=== PATIENT | male | born 1980 | race Two or more races ===

== ENCOUNTER 2025-01-05 13:32 | Emergency (ER) | payer OTHER ==
[~2025-01-05] VITALS: Ht 172.7 cm; Wt 84.5 kg
--- NOTE | 2025-01-05 13:54 | ED.PDOC ---
History of Present Illness HPI Comments This is a 44-year-old male with past medical history of panic disorder presented to the ED with a chief complaint of palpitation, shortness of breath and nausea 1-1/2 hr before presenting to the ER. The patient stated that he did not eat his breakfast today does drink 1 cup of coffee and half cup of water working in the sun moving 4 L and suddenly he felt lightheadedness, nauseous, palpitation, heaviness in the chest and felt like he is going to . He also mentioned that he is following with early childhood for PVC. He denies fever, chills, chest pain, , diaphoresis abdominal pain, dysuria, hematuria or any changes in bowel habit. Chief Complaint: Syncope Time Seen by MD: 13:38 Allergies: Coded Allergies: NO KNOWN ALLERGIES (Unverified , 01/05/25) Information Source: Patient Mode of Arrival: Ambulatory Severity: Moderate Timing: Hours Duration: Since onset Prehospital treatment: None Past Medical History Past Medical History (Other): Panic disorder Surgical History: Denies all surgeries Family History Family History: Reviewed,noncontributory to illness Social History Smoker: Non-Smoker Alcohol: Denies ETOH Use Drugs: Denies Drug Use Lives In: Home Constitutional: denies: chills, diaphoresis, fatigue, fever, malaise, sweats, weakness, others EENTM: denies: blurred vision, double vision, ear bleeding, ear discharge, ear drainage, ear pain, ear ringing, eye pain, eye redness, hearing loss, mouth pain, mouth swelling, nasal discharge, nose bleeding, nose congestion, nose pain, photophobia, tearing, throat pain, throat swelling, voice changes, others Respiratory: reports: shortness of breath; denies: cough, hemoptysis, orthopnea, SOB at rest, SOB with excertion, stridor, wheezing, others Cardiovascular: reports: lightheadedness; denies: chest pain, dizzy spells, diaphoresis, Dyspnea on exertion, edema, irregular heart beat, left arm pain, palpitations, PND, syncope, others Gastrointestinal: reports: nausea; denies: abdomen distended, abdominal pain, blood streaked bowels, constipated, diarrhea, dysphagia, difficulty swallowing, hematemesis, melena, poor appetite, poor fluid intake, rectal bleeding, rectal pain, vomiting, others Genitourinary: denies: burning, dysuria, flank pain, frequency, hematuria, incontinence, penile discharge, penile sore, pain, testicle pain, testicle swelling, urgency, others Neurological: reports: dizziness; denies: fainting, headache, left sided numbness, left sided weakness, numbness, paresthesia, pre-existing deficit, right sided numbness, right sided weakness, seizure, speech problems, tingling, tremors, weakness, others Musculoskeletal: denies: back pain, gout, joint pain, joint swelling, muscle pain, muscle stiffness, neck pain, others Integumetry: denies: bruises, change in color, change in hair/nails, dryness, laceration, lesions, lumps, rash, wounds, others Allergic/Immunocompromised: denies: Difficulty Healing, Frequent Infections, Hives, Itching, others Hematologic/Lymphatic: denies: anemia, blood clots, easy bleeding, easy bruising, swollen glands, others Endocrine: denies: excessive hunger, excessive sweating, excessive thirst, excessive urination, flushing, intolerance to cold, intolerance to heat, unexplained weight gain, unexplained weight loss, others Psychiatric: denies: anxiety, bipolar disorder, depression, hopeless, panic disorder, schizophrenia, sleepless, suicidal, others Physical Exam General Appearance: Normal HEENT: Normal ENT Inspection, Pharynx Normal, TMs Normal Neck: Full Range of Motion, Non-Tender, Normal, Normal Inspection Respiratory: Chest Non-Tender, Lungs Clear, No Accessory Muscle Use, No Respiratory Distress, Normal Breath Sounds Cardiovascular: No Edema, No JVD, No Murmur, No Gallop, Normal Peripheral Pulses, Regular Rate/Rhythm Breast Exam: Deferred Gastrointestinal: No Organomegaly, Non Tender, No Pulsatile Mass, Normal Bowel Sounds Genitalia: Deferred Pelvic: Deferred Rectal: Deferred Extremities: No calf tenderness, Normal capillary refill, Normal inspection, Normal range of motion, Non-tender, No pedal edema Neurologic: Alert, adjusto writer operator II-XII nml as Tested, No Motor Deficits, Normal Affect, Normal Mood, No Sensory Deficits Cerebellar Function: NOT DONE Reflexes: NOT DONE Skin: NOT DONE Peripheral Pulses: 2+ carotid (R), 2+ carotid (L), 2+ femoral (R), 2+ femoral (L), 2+ dorsalis pedis (R), 2+ dorsalis pedis (L), 2+ Radial (R), 2+ Radial (L), 2+ Brachial (R), 2+ Brachial (L) Lymphatic: NOT DONE Was a procedure done? Was a procedure done?: No EKG EKG : Pulse Rate (adult): 101 Comments Sinus tachycardia Differential Dx Considerations may include: Vasovagal syncope, panic attack, dehydration, gastroenteritis X-Ray, Labs, Meds, VS Vital Signs Date Time Temp Pulse Resp B/P (MAP) Pulse Ox O2 Delivery O2 Flow Rate FiO2 01/05/25 14:45 101 01/05/25 14:33 97.7 94 18 131/92 (105) 97 97.7 01/05/25 13:42 97.1 121 16 156/95 97 97.1 01/05/25 13:41 101 Lab Test 01/05/25 14:44 01/05/25 14:06 01/05/25 13:47 Range/Units POC Glucose 119 H 70-106 mg/dl Sodium Level 140 136-145 mmol/L Potassium Level 3.6 3.5-5.1 mmol/L Chloride Level 106 98-107 mmol/L Carbon Dioxide Level 25 20-31 mmol/L Anion Gap 9 5-15 Blood Urea Nitrogen 15 9-23 mg/dL Creatinine 1.23 0.700-1.30 mg/dL Glomerular Filtration Rate Calc 75 >90 mL/min BUN/Creatinine Ratio 12.2 10.0-20.0 Serum Glucose 92 74-106 mg/dL Calcium Level 9.4 8.7-10.4 mg/dL Troponin I High Sensitivity < 3 L </=54 ng/L Thyroid Stimulating Hormone (TSH) 1.42 0.55-4.78 uIU/mL Urine Opiates Screen Neg NEGATIVE Urine Fentanyl Screen Neg NEGATIVE Urine Barbiturates Screen Neg NEGATIVE Urine Phencyclidine Screen Neg NEGATIVE Urine Amphetamines Screen Neg NEGATIVE Urine Benzodiazepines Screen Neg NEGATIVE Urine Cocaine Screen Neg NEGATIVE Urine Cannabinoids Screen Neg NEGATIVE Current Medications Medications (Trade) Dose Ordered Sig/Margarita Route Start Time Stop Time Status Last Admin Sodium Chloride 1,000 ml @ 1,000 mls/hr Q1H ONCE IV 01/05/25 14:00 01/05/25 14:59 DC 01/05/25 14:00 Images Reviewed?: Images reviewed and evaluated by me Time of 1ST Reevaluation: 14:44 Reevaluation 1ST: Improved Patient Education/Counseling: Diagnosis, Treatment Family Education/Counseling: No Family Present SEPSIS Sepsis Screen Date sepsis recognized/suspect: Jan 05, 2025 Time Sepsis recognized/suspect: 1344 Recent Procedure: No On Antibiotic Therapy: No Respiratory Rate >20: No Heart Rate >90: Yes Temp<36 C (96.8 F) or >38.3 C: No SBP <90 or MAP <65 mmHG: No New Acute Mental Status Change: No Is the patient on CPAP, BIPAP,: No Vital Signs Date Time Temp Pulse Resp B/P (MAP) Pulse Ox O2 Delivery O2 Flow Rate FiO2 01/05/25 14:45 101 01/05/25 14:33 97.7 94 18 131/92 (105) 97 97.7 01/05/25 13:42 97.1 121 16 156/95 97 97.1 01/05/25 13:41 101 Medications Medications Dose Ordered Sig/Margarita Route Start Time Stop Time Status Last Admin Dose Admin Sodium Chloride 1,000 ml @ 1,000 mls/hr Q1H ONCE IV 01/05/25 14:00 01/05/25 14:59 DC 01/05/25 14:00 Departure 1 Departure Time of Disposition: 15:00 Impression: Primary Impression: Vasovagal near syncope Additional Impression: Panic attack Disposition: 01 HOME / SELF CARE / HOMELESS Condition: Fair Critical Care Note Critical Care Time?: No Stability Stability form required: ROBE Rodriguez RESIDENT Jan 05, 2025 13:54
[2025-01-05] MEDS: SODIUM CHLORIDE 0.9% 1,000 ML IV ONE (14:00)
[2025-01-05 14:25] LABS: Chloride 106 mmol/L (98-107); Potassium 3.6 mmol/L (3.5-5.1); Sodium 140 mmol/L (136-145)
[2025-01-05 14:26] LABS: Anion Gap 9 (5-15); Calcium 9.4 mg/dL (8.7-10.4); Carbon Dioxide 25 mmol/L (20-31)
[2025-01-05 14:31] LABS: BUN/Creatinine Ratio 12.2 (10.0-20.0); Blood Urea Nitrogen 15 mg/dL (9-23); Glucose 92 mg/dL (74-106)
[2025-01-05 14:33] VITALS: BP 131/92; RESP 18; TEMP 97.7; O2SAT 97
--- NOTE | 2025-01-05 14:44 | ECG ---
[facility] Test Date: 2025-01-05 Test Time: 13:41:16 Pat Name: TOBY BARGER Department: ED Room: Gender: User Support Analyst Supervisor: CHARLI : 1980 Requested By: JESUSITA LAINEZ Order Number: [id number] Reading MD: Russell Mauro Measurements Intervals [place] Rate: 101 P: 61 NV: 173 QRS: 54 QRSD: 86 T: 10 QT: 328 QTc: 426 Interpretive Statements Sinus tachycardia Electronically Signed On 01-08-2025 18:16:01 PDT by Russell Mauro Please click the below link to view image of tracing.
[2025-01-05 14:45] VITALS: PULSE 101
[2025-01-05 14:52] LABS: Amphetamine Screen, Urine Neg (NEGATIVE); Barbiturate Scree,Urine Neg (NEGATIVE); Benzodiazephine Screen, Urine Neg (NEGATIVE)
[2025-01-05 14:53] LABS: Opiate Scree,Urine Neg (NEGATIVE)
[2025-01-05 14:54] LABS: Cannabinoid Screen, Urine Neg (NEGATIVE); Cocaine Screen, Urine Neg (NEGATIVE); Phencyclidine Screen, Urine Neg (NEGATIVE)
== END 2025-01-05 15:31 | disposition home or self-care (01) ==
LOC: ER 13:40
DX: F41.0 Panic disorder [episodic paroxysmal anxiety] (principal); R55 Syncope and collapse; R00.2 Palpitations; R06.02 Shortness of breath; R11.0 Nausea
CPT/HCPCS: 36415; 80048; 80307; 82947; 84443; 84484; 93005; 96360; 99284; J7030; 82962